=== PATIENT | male | born 1990 | race Two or more races ===

== ENCOUNTER 2021-02-27 18:21 | Emergency (ER) | payer OTHER ==
[~2021-02-27] VITALS: Ht 172.7 cm; Wt 90.7 kg
== END 2021-02-27 21:19 | disposition home or self-care (01) ==
LOC: ER 18:21
DX: S91.242A Puncture wound with foreign body of left great toe with damage to nail, initial encounter (principal); W22.8XXA Striking against or struck by other objects, initial encounter; Y93.89 Activity, other specified; Y92.832 Beach as the place of occurrence of the external cause; Y99.8 Other external cause status